=== PATIENT | female | born 1965 | race Hispanic/Latino ===

== ENCOUNTER 2022-06-04 08:07 | Day surgery (SDC) | payer BC ==
[2022-05-28 13:58] LABS: CREATININE 0.8 mg/dL (0.5-1.5); POTASSIUM 4.3 mmol/L (3.5-5.1)
[2022-05-28 14:02] LABS: INR 0.94 (0.85-1.15); PROTHROMBIN TIME 10.3 SEC (9.6-11.6)
[2022-05-28 14:04] LABS: PARTIAL THROMBOPLASTIN TIME 26.5 SEC (26.3-35.5)
[2022-06-03 09:05] VITALS: BP 119/67
[2022-06-04] VITALS (12 sets, daily range): BP systolic 126–145; BP diastolic 63–89
[~2022-06-04] VITALS: Ht 180.3 cm; Wt 72.6 kg
[~2022-06-04 08:07] MED LIST: BUPR-49 PO; CLOP75TA32 PO; ESCI10TA PO; PROG200C11 PO; SEMA7TAB2 PO
[2022-06-04] MEDS ORDERED: LACTATED RINGERS 1000ML 1,000 ML IV ONE (08:46)
[2022-06-04] MEDS ORDERED: LIDOCAINE HCL 2% PF 20 ML JEL DISP.SYRIN MM ONE (10:04)
[2022-06-04] MEDS ORDERED: ONDANSETRON 4MG INJ ONE (10:06)
[2022-06-04] MEDS ORDERED: FENTANYL CITRATE PF 50 MCG/1 ML 2ML VIAL ONE (10:06)
[2022-06-04] MEDS ORDERED: MIDAZOLAM HCL 1 MG/ML 2ML VIAL ONE (10:06)
[2022-06-04] MEDS ORDERED: PROPOFOL 10 MG/ML 20ML VIAL IV ONE (10:06)
[2022-06-04] MEDS ORDERED: DEXAMETHASONE SOD PHOSPHATE 10MG/ML 1ML VIAL ONE (10:06)
[2022-06-04] MEDS ORDERED: SILVER NITRATE APPLICATOR 1 SWAB TP ONE (10:09)
[2022-06-04] MEDS ORDERED: GLYCOPYRROLATE 1 MG/5 ML SYRINGE ONE (11:29)
== END 2022-06-04 13:50 | disposition home or self-care (01) ==
LOC: DAH 08:07
PROVIDERS: ATTEND Obstetrics & Gynecology
DX: N95.0 Postmenopausal bleeding (principal); R93.89 Abnormal findings on diagnostic imaging of other specified body structures; Z79.01 Long term (current) use of anticoagulants; Z82.0 Family history of epilepsy and other diseases of the nervous system
CPT/HCPCS: 80048; 85610; 85730; 36415; 87635; 93005; 58558; C9803; J7030; A4351; A4355; J7120; J3010; J3490; J1100; J2250; J2704; J2405

== ENCOUNTER 2025-03-15 06:40 | Day surgery (SDC) | payer BC ==
[2025-03-13 11:51] LABS: BASOPHILS # (AUTO) 0.09 K/uL (0.00-0.20); BASOPHILS % (AUTO) 1.4 % (0.0-5.0); EOSINOPHILS # (AUTO) 0.26 K/uL (0.00-0.70); EOSINOPHILS % (AUTO) 3.9 % (0.0-8.0); IMMATURE GRANULOCYTE ABSOLUTE 0.01 K/uL (0-1); LYMPHOCYTES % (AUTO) 44.6 % (21.0-51.0); MEAN CORPUSCULAR HEMOGLOBIN 30.5 pg (27.0-33.0); MEAN CORPUSCULAR HGB CONC 33.8 g/dL (32.0-36.0); MEAN CORPUSCULAR VOLUME 90.2 fL (79-99); MONOCYTES # (AUTO) 0.7 K/uL (0.1-1.0); MONOCYTES % (AUTO) 10.1 % (3.0-13.0); NEUTROPHILS # (AUTO) 2.6 K/uL (1.8-7.7); NEUTROPHILS % (AUTO) 39.8 % (40.0-77.0); PLATELET COUNT (AUTO) 366 K/uL (130-400); RED CELL DISTRIBUTION WIDTH 14.4 % (11.0-15.5); WHITE BLOOD COUNT (AUTO) 6.6 K/uL (4.8-10.8)
[2025-03-13 11:59] LABS: CREATININE 0.8 mg/dL (0.5-1.0)
[2025-03-13 12:16] VITALS: BP 160/67; PULSE 52; RESP 18; TEMP 97.5
[~2025-03-15] VITALS: Ht 177.8 cm; Wt 78.0 kg
[2025-03-15] VITALS (13 sets, daily range): BP systolic 125–138; BP diastolic 62–82; PULSE 54–70; RESP 12–18; TEMP 97.4–97.8
[~2025-03-15 06:40] MED LIST changes: +ASPI-1443 PO; -CLOP75TA32 PO; +DHEA VG; -SEMA7TAB2 PO
[2025-03-15] MEDS ORDERED: LIDOCAINE PF 100MG/5ML (2%) SYRINGE 5ML ONE (07:32)
[2025-03-15] MEDS ORDERED: dexaMETHasone SOD PHOSPHATE 10MG/ML 1ML VIAL ONE (07:32)
[2025-03-15] MEDS ORDERED: MIDAZOLAM HCL 1 MG/ML 2ML VIAL ONE (07:33)
[2025-03-15] MEDS ORDERED: FENTanyl CITRate PF 50 MCG/1 ML 2ML VIAL ONE (07:33)
[2025-03-15] MEDS ORDERED: proPOFol 10 MG/ML 20ML VIAL IV ONE (07:33)
[2025-03-15] MEDS ORDERED: ketOROlac 30MG VIAL (30MG/ML) ONE (07:34)
[2025-03-15] MEDS ORDERED: ondanSETRON 4MG INJ ONE (07:34)
[2025-03-15] MEDS: LACTATED RINGERS 1000ML 1,000 ML IV ONE (08:02)
[2025-03-15] MEDS ORDERED: GLYCOPYRROLATE 0.2 MG/ML 5 ML VIAL ONE (08:02)
--- NOTE | 2025-03-15 08:48 | OP ---
Operative Note: DATE OF PROCEDURE: 03/15/25 SURGEON: PETER HANNAH MD PLATFORM STAPLER: [NA] ANESTHESIA: [GENERAL] ANESTHESIOLOGIST/SUPPORT STAFF: [GENERAL] PREOPERATIVE DIAGNOSIS: [POSTMENOPAUSAL BLEEDING] POSTOPERATIVE DIAGNOSIS: [SAME] SYNOPSIS: [NA] PROCEDURE: [HYSTEROSCOPY d&c ] ESTIMATED BLOOD LOSS: [MINIMAL] INDICATIONS: [POSTMENOPAUSAL BLEEDING ] DESCRIPTION OF PROCEDURE: [The patient and her daughter were visited in the holding area and she had no additional questions and was ready to proceed. The patient was taken to the operating room, placed under general anesthesia, prepped anddraped in the dorsal lithotomy position and her bladder was drained. A time out was taken to confirm the patient's identity, the planned operation and her allergies and medication administration. A right angle speculum was placed in the vagina and the cervix grasped with the single tooth tenaculum, the uterus sounded to about 7-8 cm and was retroverted. The cervix was gradually dilated to about 7-8 mm and the hysteroscope with normal saline distension media was placed with findings of very scanty tissue mostly posterior, photographs were taken, the hysteroscope was removed and the sharp curette was used to curette all surfaces until gritty with only a scanty amount of tissue returned. The hysteroscope was reintroduced and curettage done again and the scope was reintroduced and all surfaces were clean. The single tooth tenaculum and right angle were removed. The patient tolerated the procedure well and all sponge, lap and needle counts were correct. The patient was awakened and taken to the recovery room in stable condition. The patient's daughter will be called with the patient's stability. ] PETER HANNAH MD Mar 15, 2025 08:48
== END 2025-03-15 10:19 | disposition home or self-care (01) ==
LOC: DAH 06:40
PROVIDERS: ATTEND Obstetrics & Gynecology
DX: N95.0 Postmenopausal bleeding (principal); N87.9 Dysplasia of cervix uteri, unspecified; Z79.890 Hormone replacement therapy; Z79.899 Other long term (current) drug therapy; Z98.890 Other specified postprocedural states; Z84.89 Family history of other specified conditions
CPT/HCPCS: 80048; 85025; 36415; 58558; 88305; A6260; J1885; A4663; J7030; A4351; A4355; J7120; J3010; J1100; J2003; J2250; J2704; J2405; J3490; A4215; A4222; A4221; A4216; A4223 ×2